=== PATIENT | male | born 1955 | race Caucasian/White ===

== ENCOUNTER 2018-07-27 12:42 | Inpatient (IN) | payer OTHER ==
--- NOTE | 2018-07-27 12:50 | EDPHY ---
H & P Time Seen by Provider: 07/27/18 12:46 HPI/ROS: CHIEF COMPLAINT: Left-sided weakness, dizziness HISTORY OF PRESENT ILLNESS: 62-year-old male with hypertension presents as a stroke alert with left-sided weakness and dizziness. Onset left-sided weakness at 1115am. Noted that the left arm was weak and trouble walking because of left leg weakness. Associated with slurred speech and dizziness. He has a moderate room spinning sensation and difficulty walking because of vertigo. No prior history of CVA. Not on anticoagulants or aspirin. REVIEW OF SYSTEMS: complete 10 point ROS reviewed and is negative except for the noted elements in the HPI - Physical Exam Exam: General Appearance: Alert, talkative, speech is clear Eyes: Pupils equal and round, no conjunctival pallor, horizontal nystagmus ENT, Mouth: Mucous membranes moist Neck: Normal inspection Respiratory: Lungs are clear to auscultation Cardiovascular: Regular rate and rhythm Gastrointestinal: Abdomen is soft and nontender Neurological: Alert and oriented, left sided weakness Skin: Warm and dry Extremities: Normal inspection Psychiatric: Mood and affect normal Constitutional: Initial Vital Signs Temperature (C) 36.6 C 07/27/18 13:02 Heart Rate 86 07/27/18 13:02 Respiratory Rate 20 07/27/18 13:02 Blood Pressure 129/72 H 07/27/18 13:02 O2 Sat (%) 95 07/27/18 13:02 O2 Delivery Mode Room Air O2 (L/minute) 2 Allergies/Adverse Reactions: bee pollen Allergy (Verified 07/27/18 15:19) Home Medications: Medication Instructions Recorded Hydrochlorothiazide [HCTZ (*)] 25 mg PO DAILY 07/27/18 Lisinopril [Zestril 40 mg (*)] 40 mg PO DAILY 07/27/18 Multivitamins [Multivitamin (*)] 1 each PO DAILY 07/27/18 Medical Decision Making - Diagnostics EKG Interpretation: EKG interpreted by me reveals normal sinus rhythm, rate 81, inferior Q-waves, no ST or T segment changes. Interpretation: Borderline EKG Imaging Results: Imaging Impressions Head CT 07/27/18 12:47 Impression: 1. Old stroke of the right temporoparietal junction. 2. Encephalomalacia and white matter hypodensity adjacent to the area of old stroke. Subacute stroke adjacent to chronic stroke is not excluded. However, this appearance would not be consistent with symptoms are only 1 to 2 hours new. 3. No intracranial hemorrhage or mass. Findings and recommendations discussed with Dr. Haydee Corbett at 12:58 p.m. on July 27, 2018. Final report concurs with initial preliminary interpretation. Head CTA 07/27/18 12:47 Impression: 1. Evidence of acute thrombus in the distal right vertebral artery, which affecting the posteroinferior cerebellar artery, which is not visualized. 2. Truncation of the M2 segment of the right middle cerebral artery, with a more chronic appearance and encephalomalacia in the right temporal parietal region as sequela from an old remote infarct. 3. Approximately 50% stenosis in both intracranial portions of the intracranial arteries, cavernous portions, from atherosclerotic calcified plaque and wall. CT Angiogram Neck With Contrast Enhancement and Multiplanar Reconstructions History: Left weak, vertigo. Technique: 1.25-mm axial multidetector helical CT imaging was performed through the neck while 75 mL Isovue-370 were injected intravenously without complication. The images were then transferred to an independent workstation where multiplanar and three-dimensional reconstructions were performed by the interpreting physician and reviewed at multiple windows. Dose reduction techniques were utilized. CTA Findings: Calcified atherosclerotic plaque is seen at both carotid bulbs extending to both proximal internal carotid arteries. This is more predominant on the left with approximately 50% stenosis. Both internal carotid arteries are widely patent in the neck, with tortuosity on the right. Left vertebral artery is widely patent without significant stenosis to the basilar artery. Right vertebral artery is smaller than the left. There is a slight halo around the distal right vertebral artery beginning at the level of C1-C2, extending to the base of the skull, where it is then nonvisualized with thrombus to the level of the basilar artery. CT Neck Findings: Multilevel degenerative change is seen in the cervical spine. There is disk height narrowing and osteophytosis, most pronounced at C5- C6 and C6-C7. There is more predominant stenosis on the right at C6-C7, from uncovertebral joint hypertrophy and spurring. Otherwise the narrowing is mild to moderate at multiple levels. Nonspecific air is seen in the left supraclavicular region, which could be from recent instrumentation or line placement. No suspicious lymph nodes. Lung apices are clear. Impression: 1. Evidence of thrombus in the distal right vertebral artery to the level of the basilar artery. This begins at the base of the skull to the basilar artery. There is also a possible halo with circumferential thrombus or less likely dissection at the level of C1-C2. 2. Mild atherosclerotic calcified plaque at both carotid bulbs extending to both proximal internal carotid arteries, more predominant on the left than the right, with near 50% stenosis on the left. Results called and discussed with Dr. Haydee Corbett on July 27, 2018 at 1410 hours. Measurement of carotid stenosis is based on the residual internal carotid diameter with [place] Symptomatic Carotid Endarterectomy Trial (NASCET) based stenosis levels. Neck CTA 07/27/18 12:47 Impression: 1. Evidence of acute thrombus in the distal right vertebral artery, which affecting the posteroinferior cerebellar artery, which is not visualized. 2. Truncation of the M2 segment of the right middle cerebral artery, with a more chronic appearance and encephalomalacia in the right temporal parietal region as sequela from an old remote infarct. 3. Approximately 50% stenosis in both intracranial portions of the intracranial arteries, cavernous portions, from atherosclerotic calcified plaque and wall. CT Angiogram Neck With Contrast Enhancement and Multiplanar Reconstructions History: Left weak, vertigo. Technique: 1.25-mm axial multidetector helical CT imaging was performed through the neck while 75 mL Isovue-370 were injected intravenously without complication. The images were then transferred to an independent workstation where multiplanar and three-dimensional reconstructions were performed by the interpreting physician and reviewed at multiple windows. Dose reduction techniques were utilized. CTA Findings: Calcified atherosclerotic plaque is seen at both carotid bulbs extending to both proximal internal carotid arteries. This is more predominant on the left with approximately 50% stenosis. Both internal carotid arteries are widely patent in the neck, with tortuosity on the right. Left vertebral artery is widely patent without significant stenosis to the basilar artery. Right vertebral artery is smaller than the left. There is a slight halo around the distal right vertebral artery beginning at the level of C1-C2, extending to the base of the skull, where it is then nonvisualized with thrombus to the level of the basilar artery. CT Neck Findings: Multilevel degenerative change is seen in the cervical spine. There is disk height narrowing and osteophytosis, most pronounced at C5- C6 and C6-C7. There is more predominant stenosis on the right at C6-C7, from uncovertebral joint hypertrophy and spurring. Otherwise the narrowing is mild to moderate at multiple levels. Nonspecific air is seen in the left supraclavicular region, which could be from recent instrumentation or line placement. No suspicious lymph nodes. Lung apices are clear. Impression: 1. Evidence of thrombus in the distal right vertebral artery to the level of the basilar artery. This begins at the base of the skull to the basilar artery. There is also a possible halo with circumferential thrombus or less likely dissection at the level of C1-C2. 2. Mild atherosclerotic calcified plaque at both carotid bulbs extending to both proximal internal carotid arteries, more predominant on the left than the right, with near 50% stenosis on the left. Results called and discussed with Dr. Haydee Corbett on July 27, 2018 at 1410 hours. Measurement of carotid stenosis is based on the residual internal carotid diameter with [place] Symptomatic Carotid Endarterectomy Trial (NASCET) based stenosis levels. Imaging: Discussed imaging studies w/ scallop binder Radiologist ED Course/Re-evaluation: This patient presents as a stroke alert with left-sided weakness and vertigo. I met this patient in the hallway. He went directly to CT, and then was interviewed by Dr. Gilmore of telemedicine. CT scan of the brain read by Dr. Dulce Maria Armando reveals an old infarct in the right frontoparietal area. 1310: d/w Dr. Gilmore, pt not a TPA candidate at this point, denies weakness on her evaluation. Requests CT/CTA of the brain and neck. 1430: CTA results discussed with Dr. Gilmore. Reveals a distal right vertebral clot. Dr. Gilmore requests TPA if pt unable to ambulate. Will attempt to ambulate the patient. If he is unable to ambulate, will proceed with tPA. Otherwise Dr. Gilmore does not feel that tPA is indicated. Repeat neuro exam: NIH stroke score of 4 (left arm/leg drift, limb ataxia LLE, moderate sensory loss LLE). Nystagmus present, not as pronounced as on initial exam. 1435: pt unable to ambulate. He tried to take one step and would have fallen if staff not there to support him d/t LLE weakness/numbness. I feel that he is an appropriate candidate for tPA. He has no contraindications. Risks and benefits of tPA discussed with the patient and his family. They clearly understand the the risks associated with tPA and wish to proceed. TPA ordered per protocol. The hospitalist service was consulted for admission and neurology was consulted. Dr. Eason will see the patient in the ICU. I spent a total of 45 minutes of critical care time in obtaining history, performing a physical exam, bedside monitoring of interventions, collecting and interpreting tests and discussion with consultants but not including time spent performing procedures. Organ at risk: Brain Differential Diagnosis: Altered mental status including but not limited to hypoglycemia, infectious process, electrolyte abnormality, head injury, CVA, and intoxicants. - Data Points Laboratory Results: Laboratory Results 07/27/18 13:50 07/27/18 13:12 07/27/18 07/27/18 07/27/18 13:50 13:29 13:13 WBC 12.51 10^3/uL H 10^3/uL (3.80-9.50) RBC 4.81 10^6/uL 10^6/uL (4.40-6.38) Hgb 13.9 g/dL g/dL (13.7-17.5) POC Hgb 15.3 gm/dL gm/dL (13.7-17.5) Hct 42.2 % % (40.0-51.0) POC Hct 45 % % (40-51) MCV 87.7 fL fL (81.5-99.8) MCH 28.9 pg pg (27.9-34.1) MCHC 32.9 g/dL g/dL (32.4-36.7) RDW 13.9 % % (11.5-15.2) Plt Count 276 10^3/uL 10^3/uL (150-400) MPV 10.1 fL fL (8.7-11.7) Neut % (Auto) 80.0 % H % (39.3-74.2) Lymph % (Auto) 13.0 % L % (15.0-45.0) [place] % (Auto) 6.2 % % (4.5-13.0) Eos % (Auto) 0.2 % L % (0.6-7.6) Baso % (Auto) 0.2 % L % (0.3-1.7) Nucleat RBC Rel Count 0.0 % % (0.0-0.2) Absolute Neuts (auto) 9.99 10^3/uL H 10^3/uL (1.70-6.50) Absolute Lymphs (auto) 1.63 10^3/uL 10^3/uL (1.00-3.00) Absolute Monos (auto) 0.78 10^3/uL 10^3/uL (0.30-0.80) Absolute Eos (auto) 0.03 10^3/uL 10^3/uL (0.03-0.40) Absolute Basos (auto) 0.03 10^3/uL 10^3/uL (0.02-0.10) Absolute Nucleated RBC 0.00 10^3/uL 10^3/uL (0-0.01) Immature Gran % 0.4 % % (0.0-1.1) Immature Gran # 0.05 10^3/uL 10^3/uL (0.00-0.10) POC Sodium 143 mEq/L mEq/L (135-145) Sodium POC Potassium 3.8 mEq/L mEq/L (3.3-5.0) Potassium POC Chloride 108 mEq/L mEq/L (97-110) Chloride Carbon Dioxide Anion Gap POC BUN 27 mg/dL H mg/dL (7-23) BUN Creatinine POC Creatinine 1.1 mg/dL mg/dL (0.7-1.3) Estimated GFR Glucose POC Glucose 147 mg/dL H mg/dL (70-100) Calcium POC Troponin I 0.01 ng/mL ng/mL (0.00-0.08) 07/27/18 13:12 WBC RBC Hgb POC Hgb Hct POC Hct MCV MCH MCHC RDW Plt Count MPV Neut % (Auto) Lymph % (Auto) [place] % (Auto) Eos % (Auto) Baso % (Auto) Nucleat RBC Rel Count Absolute Neuts (auto) Absolute Lymphs (auto) Absolute Monos (auto) Absolute Eos (auto) Absolute Basos (auto) Absolute Nucleated RBC Immature Gran % Immature Gran # POC Sodium Sodium 141 mEq/L mEq/L (135-145) POC Potassium Potassium 4.5 mEq/L mEq/L (3.5-5.2) POC Chloride Chloride 108 mEq/L mEq/L (97-110) Carbon Dioxide 21 mEq/l L mEq/l (22-31) Anion Gap 12 mEq/L mEq/L (6-14) POC BUN BUN 27 mg/dL H mg/dL (7-23) Creatinine 1.0 mg/dL mg/dL (0.7-1.3) POC Creatinine Estimated GFR > 60 Glucose 140 mg/dL H mg/dL (70-100) POC Glucose Calcium 9.8 mg/dL mg/dL (8.5-10.4) POC Troponin I Medications Given: Discontinued Medications Alteplase, Recombinant (Activase) 8.9811 mg 0.09 mg/kg (8.9811 mg) IV ONCE ONE PRN Reason: Protocol Stop: 07/27/18 14:50 Last Admin: 07/27/18 15:00 Dose: 8.9811 mg Alteplase, Recombinant (Activase) 80.8299 mg 0.81 mg/kg (80.8299 mg) IV ONCE ONE PRN Reason: Protocol Stop: 07/27/18 14:50 Last Admin: 07/27/18 15:00 Dose: 80.8299 mg Aspirin (Aspirin) 325 mg PO EDNOW ONE Stop: 07/27/18 13:17 Last Admin: 07/27/18 13:18 Dose: 325 mg Point of Care Test Results: Chemistry 07/27/18 07/27/18 13:29 13:13 POC Sodium 143 mEq/L mEq/L (135-145) POC Potassium 3.8 mEq/L mEq/L (3.3-5.0) POC Chloride 108 mEq/L mEq/L (97-110) POC BUN 27 mg/dL H mg/dL (7-23) POC Creatinine 1.1 mg/dL mg/dL (0.7-1.3) POC Glucose 147 mg/dL H mg/dL (70-100) POC Troponin I 0.01 ng/mL ng/mL (0.00-0.08) ISTAT H&H 07/27/18 13:13 POC Hgb 15.3 gm/dL gm/dL (13.7-17.5) POC Hct 45 % % (40-51) Departure - Departure Disposition: [facility] Acute Clinical Impression: Acute ischemic stroke Condition: Critical
[2018-07-27] MEDS ORDERED: IOPAMIDOL (ISOVUE 370) 75 ML BTL IV ONE (13:04)
[2018-07-27] MEDS ORDERED: ASPIRIN 325 MG TAB PO ONE (13:16)
--- NOTE | 2018-07-27 13:57 | CPEKG ---
Test Reason : OPEN Blood Pressure : / mmHG Vent. Rate : 081 BPM Atrial Rate : 081 BPM P-R Int : 195 ms QRS Dur : 109 ms QT Int : 406 ms P-R-T Axes : 055 062 022 degrees QTc Int : 472 ms Sinus rhythm Abnormal inferior Q waves Confirmed by Haydee Corbett ([id number]) on 07/27/2018 1:57:05 PM Referred By: Confirmed By:Haydee Corbett
[2018-07-27 14:01] LABS: PLATELET COUNT 276 10^3/uL (150-400)
[2018-07-27] MEDS ORDERED: NS 50 ML IV ONE (14:49)
[2018-07-27] MEDS ORDERED: ALTEPLASE 100 MG/100 ML VIAL IV ONE (14:49)
[2018-07-27] MEDS ORDERED: ALTEPLASE 1 MG/ML SYR IV ONE (14:49)
[2018-07-27] MEDS ORDERED: LABETALOL HCL 5 MG/ML 20 ML MDV IVP PRN (15:14)
--- NOTE | 2018-07-27 15:27 | PDGENHP ---
History and Physical - Chief Complaint Dizziness and weakness - History of Present Illness Patient is a 62-year-old male with past medical history of hypertension who presented with acute onset of dizziness, and left-sided numbness and weakness. He says that he was in the process of installing a new furnace and he started having hot flashes and then started feeling dizzy. His symptoms worsened and he also started to notice that his left hand felt numb and tingly and his left foot felt numb and clumsy. He could not differentiate between whether not he felt dizzy like the room was spinning or if he felt lightheaded. He did not have any nausea vomiting or chest pain. He did not notice any racing heart. He was well up until this incident. He says that lying down on his back seems to make the symptoms better but getting up and trying to move around makes symptoms much worse. In the ER neurology was consulted who initially did not want tPA. CTA confirmed posterior stroke and Neurology was reconsulted who then decided to administer tPA. History Information - Allergies/Home Medication List Allergies/Adverse Reactions: bee pollen Allergy (Verified 07/27/18 15:19) Home Medications: Hydrochlorothiazide [HCTZ (*)] 25 mg PO DAILY 07/27/18 [Last Taken 07/27/18] Lisinopril [Zestril 40 mg (*)] 40 mg PO DAILY 07/27/18 [Last Taken 07/27/18] Multivitamins [Multivitamin (*)] 1 each PO DAILY 07/27/18 [Last Taken 07/27/18] I have personally reviewed and updated: family history, medical history, social history, surgical history - Past Medical History hypertension - Surgical History Additional surgical history: Finger surgery for a severed tendon - Family History Positive for: diabetes type II, hypertension - Social History Smoking Status: Current every day smoker Tobacco Use: Cigarettes Alcohol Use: Occasionally Drug Use: None Review of Systems Review of Systems: ROS: 10pt was reviewed & negative except for what was stated in HPI & below Physical Exam Physical Exam: Temp Pulse Resp BP Pulse Ox 37.6 C 92 18 140/79 H 91 L 07/27/18 14:20 07/27/18 14:20 07/27/18 14:20 07/27/18 14:20 07/27/18 14:20 Constitutional: no apparent distress, appears nourished, not in pain Eyes: PERRL, anicteric sclera, EOMI Ears, Nose, Mouth, Throat: moist mucous membranes, hearing normal, ears appear normal, no oral mucosal ulcers Cardiovascular: regular rate and rhythym, no murmur, rub, or gallop, No edema Peripheral Pulses: 2+: dorsalis-pedis (R), dorsalis-pedis (L) Respiratory: no respiratory distress, no rales or rhonchi, clear to auscultation Gastrointestinal: normoactive bowel sounds, soft, non-tender abdomen, no palpable masses Genitourinary: no bladder fullness, no bladder tenderness Skin: warm, normal color, no rashes or abrasions, no fluctuance, no induration, No mottled Musculoskeletal: full muscle strength, no muscle tenderness, normal joint ROM, no joint effusions Neurologic: AAOx3, weakness, CN II-XII Intact, other (Mild left-sided weakness in his hands and he describes decreased sensation in his left arm and hand) Psychiatric: interacting appropriately, not anxious, not encephalopathic, thought process linear Lymph, Heme, Immunologic: no cervical LAD, no supraclavicular LAD Lab Data & Imaging Review 07/27/18 13:50 07/27/18 13:12 WBC 12.51 10^3/uL (3.80-9.50) H 07/27/18 13:50 RBC 4.81 10^6/uL (4.40-6.38) 07/27/18 13:50 Hgb 13.9 g/dL (13.7-17.5) 07/27/18 13:50 POC Hgb 15.3 gm/dL (13.7-17.5) 07/27/18 13:13 Hct 42.2 % (40.0-51.0) 07/27/18 13:50 POC Hct 45 % (40-51) 07/27/18 13:13 MCV 87.7 fL (81.5-99.8) 07/27/18 13:50 MCH 28.9 pg (27.9-34.1) 07/27/18 13:50 MCHC 32.9 g/dL (32.4-36.7) 07/27/18 13:50 RDW 13.9 % (11.5-15.2) 07/27/18 13:50 Plt Count 276 10^3/uL (150-400) 07/27/18 13:50 MPV 10.1 fL (8.7-11.7) 07/27/18 13:50 Neut % (Auto) 80.0 % (39.3-74.2) H 07/27/18 13:50 Lymph % (Auto) 13.0 % (15.0-45.0) L 07/27/18 13:50 [place] % (Auto) 6.2 % (4.5-13.0) 07/27/18 13:50 Eos % (Auto) 0.2 % (0.6-7.6) L 07/27/18 13:50 Baso % (Auto) 0.2 % (0.3-1.7) L 07/27/18 13:50 Nucleat RBC Rel Count 0.0 % (0.0-0.2) 07/27/18 13:50 Absolute Neuts (auto) 9.99 10^3/uL (1.70-6.50) H 07/27/18 13:50 Absolute Lymphs (auto) 1.63 10^3/uL (1.00-3.00) 07/27/18 13:50 Absolute Monos (auto) 0.78 10^3/uL (0.30-0.80) 07/27/18 13:50 Absolute Eos (auto) 0.03 10^3/uL (0.03-0.40) 07/27/18 13:50 Absolute Basos (auto) 0.03 10^3/uL (0.02-0.10) 07/27/18 13:50 Absolute Nucleated RBC 0.00 10^3/uL (0-0.01) 07/27/18 13:50 Immature Gran % 0.4 % (0.0-1.1) 07/27/18 13:50 Immature Gran # 0.05 10^3/uL (0.00-0.10) 07/27/18 13:50 POC Sodium 143 mEq/L (135-145) 07/27/18 13:13 Sodium 141 mEq/L (135-145) 07/27/18 13:12 POC Potassium 3.8 mEq/L (3.3-5.0) 07/27/18 13:13 Potassium 4.5 mEq/L (3.5-5.2) 07/27/18 13:12 POC Chloride 108 mEq/L (97-110) 07/27/18 13:13 Chloride 108 mEq/L (97-110) 07/27/18 13:12 Carbon Dioxide 21 mEq/l (22-31) L 07/27/18 13:12 Anion Gap 12 mEq/L (6-14) 07/27/18 13:12 POC BUN 27 mg/dL (7-23) H 07/27/18 13:13 BUN 27 mg/dL (7-23) H 07/27/18 13:12 Creatinine 1.0 mg/dL (0.7-1.3) 07/27/18 13:12 POC Creatinine 1.1 mg/dL (0.7-1.3) 07/27/18 13:13 Estimated GFR > 60 07/27/18 13:12 Glucose 140 mg/dL (70-100) H 07/27/18 13:12 POC Glucose 147 mg/dL (70-100) H 07/27/18 13:13 Calcium 9.8 mg/dL (8.5-10.4) 07/27/18 13:12 POC Troponin I 0.01 ng/mL (0.00-0.08) 07/27/18 13:29 Visualized and Interpreted imaging results: Yes Interpretation: Posterior infarct vertebral artery Visualized and Interpreted EKG results: Yes Assessment & Plan Assessment: Acute ischemic stroke (Acute)- I discussed the case with the emergency room physician and reviewed the CTA of his head. I find that the patient has had an acute CVA as posterior circulation which is consistent with the symptoms. Neurology has been consulted who recommended administration of tPA. -continue tPA -monitor in ICU -seizure precautions -neuro checks -echo in the morning -neurology consultation -permissive hypertension with labetalol as needed -lipid panel and hemoglobin A1c in the morning Hypertension- patient takes hydrochlorothiazide and lisinopril at home. Current blood pressure 147/99. Would allow some element of permissive hypertension in the setting of an acute ischemic stroke. -p.r.n. Labetalol Hyperglycemia- patient with no known history of diabetes but his father did have type 2 diabetes. Glucose elevated to about 150 in the ER -hemoglobin A1c pending Prophylaxis- SCDs no heparin patient is on tPA Fluids- saline Electrolytes- within normal limits Nutrition-NPO until he passes a swallow study Cor- full code Disposition- ICU for acute ischemic stroke on tPA I spent over 60 minutes of critical care time on the management of this patietn with over half spent on diret patient care.
[2018-07-27] MEDS ORDERED: methylPREDNISolone SOD SUCC 125 MG/2 ML VIAL IVP ONE (15:54)
[2018-07-27] MEDS ORDERED: DILTIAZEM 125 MG in D5W 125 ML IV ONE (16:32)
--- NOTE | 2018-07-27 16:32 | CPEKG ---
Test Reason : OPEN Blood Pressure : / mmHG Vent. Rate : 105 BPM Atrial Rate : 136 BPM P-R Int : 141 ms QRS Dur : 110 ms QT Int : 368 ms P-R-T Axes : 000 047 -26 degrees QTc Int : 487 ms Atrial fibrillation Abnormal R-wave progression, early transition Probable inferior infarct, age indeterminate Confirmed by Qasim Powell ([id number]) on 07/27/2018 4:31:35 PM Referred By: Confirmed By:Qasim Powell
[2018-07-27] MEDS ORDERED: DILTIAZEM HCL/D5W 125 ML IV ONE (17:00)
[2018-07-27] MEDS ORDERED: NS 1,000 ML IV SCH (18:30)
[2018-07-27] MEDS ORDERED: DILTIAZEM 125 MG in D5W 125 ML IV SCH (18:30)
[2018-07-27] MEDS: FAMOTIDINE 20 MG/NACL 50 ML IV SCH (20:59)
[2018-07-28 06:00] LABS: PLATELET COUNT 284 10^3/uL (150-400)
[2018-07-28] MEDS: FAMOTIDINE 20 MG/NACL 50 ML IV SCH (09:36)
[2018-07-28] MEDS: LISINOPRIL 40 MG TAB PO SCH (09:39)
[2018-07-28] MEDS: HYDROCHLOROTHIAZIDE 25 MG TAB PO SCH (09:39)
[2018-07-28] MEDS: FAMOTIDINE 20 MG TAB PO SCH ×2 (09:39→21:51)
[2018-07-28] MEDS: DILTIAZEM 30 MG TAB PO SCH ×4 (09:43→21:52)
--- NOTE | 2018-07-28 11:26 | GCON ---
NEUROLOGIC CONSULTATION REFERRING PHYSICIAN: Gm Lee MD HISTORY: The patient is a 62-year-old gentleman whom I am asked to see in neurologic consultation re garding acute stroke. 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 The onset was at 11:15 AM. He had some trouble walking because of a little weakness in the left leg and arm. His spe ech was a little slurred, and he did feel somewhat lightheaded. He came to the emergency room for [place] and Teleneurology Service assessed him with Dr. Corbett in the emergency department, and ultimately, he received tPA. Symptoms had fluctuated a little bit, and also, about 45 minutes into t he infusion, he seemed to have acute changes leading to a repeat head CT that was negative for bleed, but he was also having possible allergic reaction. Since coming to the ICU, he feels he has resolve d back to his baseline more or less. Interestingly, he describes many, many years of episodes where he will get facial periorbital swelling. He said it has never been clear why this happens, but it us ually resolves spontaneously after 24 hours. When he was getting his infusion, he felt particularly lightheaded and sweaty, and it is unclear whether it was definitely a reaction to the tPA or not, but it was stopped. He also received Benadryl. 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 There was also evidence of a more suspicious acute right vertebral artery distal occlusion. He has been found to have atrial fibrillation with a rapid ventricular rate, but it is now being controlled with medication. He is not aware of ever hav ing a prior stroke or atrial fibrillation. His chronic medical problems have been smoking and hypert ension. He has been treated for many years for hypertension. He has been told he does not have diab etes that he is aware of. He has never been known to have elevated cholesterol. No recent fever, chills, nausea, vomiting or diarrhea. He is not describing chest pain, palpitations or shortness of breath. FAMILY HISTORY: Noncontributory. SOCIAL HISTORY: As outlined above. Occasional alcohol. Over 20 years of smoking and started when h e was about 18. He used to smoke a pack a day. Now, he probably smokes 1/2 pack a day but says he w ants to stop. MEDICATIONS: His medication at home is lisinopril/hydrochlorothiazide and multivitamin. ALLERGIES: Bee pollen. REVIEW OF SYSTEMS: As outlined above. Otherwise, unremarkable. PHYSICAL EXAMINATION: VITAL SIGNS: Blood pressure is 127/96, pulse has been somewhat irregular jaylene use of atrial fibrillation but currently around 90, respirations 24. Temperature 36.9. GENERAL: He is overweight, lying in the bed in no acute distress. EYES: Clear. NECK: Supple with no bruits or masses. ENT: He has edematous upper lip more on the right than the left. This create s a sagging of the right upper corner of the mouth. NEUROLOGIC: NIH Stroke Scale is 1 based on his dysarthria, and I do not think the facial weakness is definitely present at this point. He is alert and oriented with no obvious cognitive impairment. Pupils are 2 mm and reactive. Extraocular moveme nts intact. Normal facial sensation. Strength does not seem to be asymmetric, but the caveat is the swelling in the right face makes it a little equivocal to say for sure. Palate elevates symmetrical ly. Tongue protrudes midline. Hearing is preserved. Motor exam reveals normal muscle bulk and tone with 5/5 strength and no abnormal movement. Sensation is preserved for temperature and light touch. No ataxia on [id number]. Full reflexes are 2 to 3+ and a little more brisk in the left knee th an the right but no Babinski sign. DATA REVIEWED: Diagnostic studies were reviewed and as outlined above. He also has elevated LDL cholesterol of 133, and an HDL is 36. Atrial fibrillation is continuing on the monitor. His followup head CT did not show any evidence of acute bleeding. IMPRESSION: Total unit time of 70 minutes. 1. Acute stroke or resolving stroke in the distribution of the right vertebral artery with associate d brainstem symptoms as outlined. Current NIH Stroke Scale of 1. He also has a history of stroke by imaging on the CT in the right temporoparietal region and evidence of an old occlusion in the M2 bra nch of middle cerebral artery. This combination of findings, especially now with recognition of atri al fibrillation, suggests he probably has had intermittent atrial fibrillation and not known it, and this would likely be a second embolic event. He has risk factors of smoking and hypertension as well . He should be treated with anticoagulation using one of the heparinoid products. I would recommend Eliquis or whatever Cardiology mostly recommends as well for atrial fibrillation and secondary strok e prophylaxis. This should be started this evening after the 24-hour window following the tPA. I sp rosalva to him about this, and he is comfortable with that. He should also be started on statin therapy in the next few days, and certainly prior to discharge, and he also agrees to that. He will have Phy sical, Occupational and Speech Therapy consults likely tomorrow morning, and then, disposition can be determined over the next 24-48 hours. 2. New onset of atrial fibrillation. Likely contributing source for these suspected embolic stroke phenomena as outlined above. Cardiology and Medicine to make decisions on management of the atrial f ibrillation. 3. Hypertension. 4. Smoking. The patient should cease smoking, and he intends to do so and can receive help if neede d. 5. The patient sounds as if he has a history of developing spontaneous angioedema type events around his mouth and is showing evidence of that now, although he might also have had a reaction to the tPA otherwise described, and that seems to be stable. He did not complete the full dosing, but it would not be appropriate to do additional tPA at this point. I will continue to follow the patient's course during hospitalization and be available for questions as they arise. Echocardiogram is pending and will specifically be looking for any evidence of PFO. Copy requested to: [place], [place] /[id number]/MODL
--- NOTE | 2018-07-28 12:42 | HOSPPROG ---
Hospitalist Progress Note Assessment/Plan: 62yo M with HTN, smoker presents with acute onset dizziness, extremity numbness found to have acute stroke and atrial fibrillation. 1. Acute ischemic CVA: Involving R vertebral artery thrombus. Symptoms grossly resolved. Given old cerebral infarct identified on brain imaging, suspect this is thromboembolic from atrial fibrillation. - Neurology following - TTE w/bubble ordered - Plan for therapeutic anticoagulation at least 24 hours after TPA (roughly 3pm). Plan to initiate this evening, will discuss specific medication with cardiology, likely factor Xa inhibitor - PT/OT/AUTO DEALER 2. Atrial fibrillation: Suspect this has been chronic, asymptomatic issue. - Consulting cardiology, discussed with Caryl Rangel - Continue PO diltiazem 30mg q8h - TTE to eval valves, chamber sizes - Anticoagulate as above 3. Sporadic facial swelling: Resolving. Concern for angioedema. Airway patent. - Discussed that lisinopril could be culprit. He does not want to stop at this moment, wants to discuss with PCP. 4. Hypertension: Permissive hypertension with ischemic CVA. Cont homd lisinopril , hctz 5. Tobacco use: Strongly advised complete cessation. VTE ppx: SCDs Code: full Diet: regular Dispo: Switch to inpatient Subjective: Doing well. Facial droop, arm numbness essentially resolved. No dizziness but on bed rest. No chest pain, palpitations. Per RN went into rapid Afib yesterday afternoon when getting TPA. Briefly on diltiazem gtt until this AM when transitioned to PO. Now appears in NSR on telemetry. Objective: Vital Signs Temp Pulse Resp BP Pulse Ox 36.8 C 85 23 H 125/82 H 96 07/28/18 12:00 07/28/18 12:00 07/28/18 12:00 07/28/18 12:00 07/28/18 12:00 Laboratory Results 07/28/18 05:45 07/28/18 05:45 07/27/18 07/28/18 07/29/18 05:59 05:59 05:59 Intake Total 3909 Output Total 700 250 Balance 1399 -250 - Physical Exam Constitutional: no apparent distress, appears nourished, not in pain, obese Eyes: PERRL, anicteric sclera, EOMI Ears, Nose, Mouth, Throat: moist mucous membranes, hearing normal, ears appear normal, no oral mucosal ulcers Cardiovascular: regular rate and rhythym, no murmur, rub, or gallop, No JVD, No edema Respiratory: no respiratory distress, no rales or rhonchi, clear to auscultation Gastrointestinal: normoactive bowel sounds, soft, non-tender abdomen, no palpable masses Genitourinary: no bladder fullness, no bladder tenderness, no renal bruits Skin: no rashes or abrasions, no fluctuance, no induration Musculoskeletal: full muscle strength, no muscle tenderness, normal joint ROM Neurologic: AAOx3, sensation intact bilaterally Psychiatric: interacting appropriately, not anxious, not encephalopathic, thought process linear ICD10 Worksheet Patient Problems: Problems Problem Status Onset Acute ischemic stroke Acute
--- NOTE | 2018-07-28 12:59 | ASMTCASEMG ---
Living Arrangements What is your living Answers: Alone arrangement? Who do you live with? Type Of Residence What kind of residence do Answers: House you live in? Discharge Plan Comments Coordination Status Comments Notes: Patient is a 62yo male who was admitted for acute ischemic stroke, hypertension, hyperglycemia. 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 D/C plan TBD. CM will follow. Date Signed: 07/28/2018 12:58 PM Electronically Signed By:Melyssa Oconnor LCSW
--- NOTE | 2018-07-28 13:46 | PDMN ---
Medical Necessity Medical necessity: Pt meets inpt criteria per MD order and [facility] M-83, Stroke: Ischemic, 2 days. 62 y/o presented w/acute onset dizziness and L sided numbness and weakness, admitted w/acute ischemic stroke, confirmed on CTA of head, and atrial fibrillation w/RVR. Neuro consult, tPA initiated, dilt gtt initiated, ECHO today, ICU care. Est LOS>2MN for ongoing eval/management of above.
--- NOTE | 2018-07-28 15:58 | PDCARCONS ---
Cardiology Consult Reason for Consult: Cardiology is asked to consult regarding CVA Chief Complaint: Left sided numbness and weakness in arms and legs yesterday . Requesting Physician: Hospitalist Ruddy Sherwood MD History of Present Illness: Mervin is a 62 y/o male who was in his usual state of health until suddenly yesterday 07/27/18 while working on a furnace around 11:00, he became weak and noticed left sided numbness in his arms and legs. He had difficulty walking and felt lightheaded. He called his partner that he was working with to come help him, and he had to lay down. His speech was slurred and EMT's were called. Once at the Emergency Room he was immediately evaluated by Dr Corbett and the Teleneurology Service. Head CT scan was done finding no hemorrhage and tPA was administered. He became symptomatic and the tPA was stopped about 3pm. It was determined he was having an allergic reaction and was given Benadryl. He then had another head CT that was negative. While in ER he had an episode of atrial fibrillation that was treated with Diltiazem and he converted. He remains on oral Diltiazem. He was then transferred to ICU where he has done well and progressed nicely. He has been evaluated by Calderon Eason MD, with Neurology. 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 He does not recall having a stroke , or having stroke-like symptoms in the past. He has Hypertension, and smokes cigarettes, which as of yesterday he has stopped. He has no other history of cardiac abnormalities. At time of visit he is talkative, and in good spirits with family at bedside. History Information - Allergies/Home Medication List Allergies/Adverse Reactions: bee pollen Allergy (Verified 07/27/18 15:19) Home Medications: Hydrochlorothiazide [HCTZ (*)] 25 mg PO DAILY 07/27/18 [Last Taken 07/27/18] Lisinopril [Zestril 40 mg (*)] 40 mg PO DAILY 07/27/18 [Last Taken 07/27/18] Multivitamins [Multivitamin (*)] 1 each PO DAILY 07/27/18 [Last Taken 07/27/18] I have personally reviewed and updated: family history, medical history, social history, surgical history Past Medical History: - Past Medical History hypertension - Social History Smoking Status: Current every day smoker Tobacco Use: Cigarettes Alcohol Use: Occasionally Drug Use: None CRISTINA Risk Evaluation age greater or equal to 65: no Physical Exam Physical Exam: Temp Pulse Resp BP Pulse Ox 36.8 C 79 19 139/91 H 93 07/28/18 12:00 07/28/18 15:00 07/28/18 15:00 07/28/18 15:00 07/28/18 15:00 O2 (L/minute) 2 Constitutional: no apparent distress, not in pain Eyes: PERRL Ears, Nose, Mouth, Throat: moist mucous membranes Cardiovascular: regular rate and rhythym, no murmur, rub, or gallop Peripheral Pulses: 2+: carotid (L), dorsalis-pedis (R), dorsalis-pedis (L) Respiratory: no respiratory distress, inspiratory crackles, rhonchi Gastrointestinal: normoactive bowel sounds, soft, non-tender abdomen Genitourinary: no bladder fullness Skin: warm, normal color Musculoskeletal: full muscle strength Neurologic: AAOx3, No weakness, No numbness Psychiatric: interacting appropriately, not anxious Lab and Imaging 07/28/18 05:45 07/28/18 05:45 WBC 11.71 10^3/uL (3.80-9.50) H 07/28/18 05:45 RBC 5.12 10^6/uL (4.40-6.38) 07/28/18 05:45 Hgb 15.0 g/dL (13.7-17.5) 07/28/18 05:45 POC Hgb 15.3 gm/dL (13.7-17.5) 07/27/18 13:13 Hct 44.7 % (40.0-51.0) 07/28/18 05:45 POC Hct 45 % (40-51) 07/27/18 13:13 MCV 87.3 fL (81.5-99.8) 07/28/18 05:45 MCH 29.3 pg (27.9-34.1) 07/28/18 05:45 MCHC 33.6 g/dL (32.4-36.7) 07/28/18 05:45 RDW 14.0 % (11.5-15.2) 07/28/18 05:45 Plt Count 284 10^3/uL (150-400) 07/28/18 05:45 MPV 10.1 fL (8.7-11.7) 07/28/18 05:45 Neut % (Auto) 66.0 % (39.3-74.2) 07/28/18 05:45 Lymph % (Auto) 23.8 % (15.0-45.0) 07/28/18 05:45 [place] % (Auto) 8.4 % (4.5-13.0) 07/28/18 05:45 Eos % (Auto) 1.1 % (0.6-7.6) 07/28/18 05:45 Baso % (Auto) 0.3 % (0.3-1.7) 07/28/18 05:45 Nucleat RBC Rel Count 0.0 % (0.0-0.2) 07/28/18 05:45 Absolute Neuts (auto) 7.72 10^3/uL (1.70-6.50) H 07/28/18 05:45 Absolute Lymphs (auto) 2.79 10^3/uL (1.00-3.00) 07/28/18 05:45 Absolute Monos (auto) 0.98 10^3/uL (0.30-0.80) H 07/28/18 05:45 Absolute Eos (auto) 0.13 10^3/uL (0.03-0.40) 07/28/18 05:45 Absolute Basos (auto) 0.04 10^3/uL (0.02-0.10) 07/28/18 05:45 Absolute Nucleated RBC 0.00 10^3/uL (0-0.01) 07/28/18 05:45 Immature Gran % 0.4 % (0.0-1.1) 07/28/18 05:45 Immature Gran # 0.05 10^3/uL (0.00-0.10) 07/28/18 05:45 POC Sodium 143 mEq/L (135-145) 07/27/18 13:13 Sodium 139 mEq/L (135-145) 07/28/18 05:45 POC Potassium 3.8 mEq/L (3.3-5.0) 07/27/18 13:13 Potassium 4.1 mEq/L (3.5-5.2) 07/28/18 05:45 POC Chloride 108 mEq/L (97-110) 07/27/18 13:13 Chloride 109 mEq/L (97-110) 07/28/18 05:45 Carbon Dioxide 22 mEq/l (22-31) 07/28/18 05:45 Anion Gap 8 mEq/L (6-14) 07/28/18 05:45 POC BUN 27 mg/dL (7-23) H 07/27/18 13:13 BUN 19 mg/dL (7-23) 07/28/18 05:45 Creatinine 1.0 mg/dL (0.7-1.3) 07/28/18 05:45 POC Creatinine 1.1 mg/dL (0.7-1.3) 07/27/18 13:13 Estimated GFR > 60 07/28/18 05:45 Glucose 108 mg/dL (70-100) H 07/28/18 05:45 POC Glucose 147 mg/dL (70-100) H 07/27/18 13:13 Hemoglobin A1c 5.9 % (4.0-6.0) 07/28/18 05:45 Estim Average Glucose 123 mg/dL (68-126) 07/28/18 05:45 Calcium 9.0 mg/dL (8.5-10.4) 07/28/18 05:45 Total Bilirubin 0.6 mg/dL (0.1-1.4) 07/28/18 05:45 AST 23 IU/L (17-59) 07/28/18 05:45 ALT 31 IU/L (21-72) 07/28/18 05:45 Alkaline Phosphatase 70 IU/L (38-126) 07/28/18 05:45 POC Troponin I 0.01 ng/mL (0.00-0.08) 07/27/18 13:29 Total Protein 6.8 g/dL (6.3-8.2) 07/28/18 05:45 Albumin 4.1 g/dL (3.5-5.0) 07/28/18 05:45 Triglycerides 179 mg/dL (40-150) H 07/28/18 05:45 Cholesterol 205 mg/dL (140-220) 07/28/18 05:45 Cholesterol Risk Factr 1.4 (0.2-1.0) H 07/28/18 05:45 LDL Cholesterol, Calc 133 mg/dL (80-100) H 07/28/18 05:45 LDL Risk Factor 1.2 (0.2-1.0) H 07/28/18 05:45 VLDL Cholesterol 36 mg/dL (8-25) H 07/28/18 05:45 Non-HDL Cholesterol 169 mg/dL (90-129) H 07/28/18 05:45 HDL Cholesterol 36 mg/dL (40-65) L 07/28/18 05:45 LDL/HDL Ratio 3.70 RATIO (1.00-3.64) H 07/28/18 05:45 Cholesterol/HDL Ratio 5.69 RATIO (1.00-4.97) H 07/28/18 05:45 Visualized and Interpreted EKG results: Yes A/P Assessment: IMPRESSION & PLAN: 1. Acute Stroke now resolving. He was treated with tPA for shortened period of time due to reaction to the infusion, treated with Benadryl. The tPA was stopped about 3:[address] indicated that he likely had a previous stroke of the right temporoparietal region, and old occlusion of in the M2 branch of middle cerebral artery. It has been 24 hours since stopping the tPA. He now will be started on Eliquis 5 mg BID for anticoagulation. On exam he had noted crackles. His IV fluids were stopped. He may need a low dose diuretic if his lungs do not clear. 2. ATRIAL FIBRILLATION was seen during his ER treatment. He was treated with Diltiazem and converted to RSR. He will continue on oral Diltiazem for antiarrhythmic management. He will take his first dose of Eliquis this evening. He will need to remain on long-term anticoagulation. 3. HYPERTENSION is well managed on HCTZ, and Lisinopril. BP 117/74 this afternoon. 4. TOBACCO ABUSE. He is committed to stopping. He understands the importance of no smoking. PLAN: 1. Start Eliquis 5 mg BID for anticoagulation starting this evening dose. He will need to remain on anticoagulation long-term. 2. Continue on Diltiazem Immediate Release 30 mg QID for management of atrial fibrillation. He currently remains in RSR. 3. Echocardiogram with Bubble study has been ordered to evaluate heart structure , valves, and for possible PFO. 4. HYPERTENSION management on HCTZ 25 mg QD, Lisinopril 40 mg QD. 5. He will need to start Statin medication. We did discuss this and is will to start. He would [facility] talk [facility]. His Lipid panel was done showing hyperlipidemia with total cholesterol 205, LDL 133, Non-HDL 169. Would recommend Atorvastatin 40 mg QD. 6. Smoking Cessation importance was discussed with him. He stated that he is done smoking. 7. Paroxysmal Atrial Fibrillation by EKG. He will continue on Diltiazem Immediate release 30 mg QID. Will get EKG this afternoon, and daily. 8. Plan to have him wear a 30 day monitor after discharge to evaluate for atrial fibrillation burden. We will continue to follow along closely during his course of hospitalization. Thank you for asking us to be part of this patients care.
--- NOTE | 2018-07-28 18:19 | GCON ---
CRITICAL CARE CONSULTATION DATE OF CONSULTATION: 07/28/2018 HISTORY OF PRESENT ILLNESS: This patient is a 62-year-old male whose only past medical history inclu juan hypertension, who was working in his fireplace and noted acute onset of dizziness which he said h as happened in the past, but he did not think much of it. He also developed left numbness in his arm , as well as his lower extremities, and weakness. Initially, he came to the emergency department wit h these complaints, had a head CT that did not show any obvious stroke and was evaluated by Neurology . They thought he did not qualify for tPA, but a CT angiogram said a likely posterior stroke; subseq uently, was treated with tPA. About 45 minutes into it, he developed significant flushing, so this w as discontinued. There was also a significant facial droop at that time and repeat head CT did not s how any evidence of bleeding. By morning, his symptoms were nearly 100% abated and he felt quite wel l. Other than a period of dizziness he noted in the past, which he thought was just due to standing up too quickly, he has not had any difficulty. Of note also, he was found to be in atrial fibrillati on with RVR and was given diltiazem and this helped control his rate and maintain a normal blood pres sure. He was unaware of any previous atrial fibrillation. REVIEW OF SYSTEMS: On review of systems, he does have snoring and frequent awakening at night, but n o known sleep apnea and he denied any excess daytime somnolence. Otherwise, review of systems as juan cribed in the HPI. PAST MEDICAL HISTORY: Includes hypertension only. PAST SURGICAL HISTORY: Includes finger surgery. SOCIAL HISTORY: He is an ongoing smoker. No alcohol or IV drug use. FAMILY HISTORY: Includes diabetes and hypertension. CURRENT MEDICATIONS: Include diltiazem, Pepcid, hydrochlorothiazide, labetalol p.r.n., lisinopril, a nd Eliquis started today. PHYSICAL EXAMINATION: VITAL SIGNS: At the time of my exam, his blood pressure is 136/99, heart rate of 114, respirations 14, oxygen saturation 93%. GENERAL: He was awake and alert, sitting on the si de of the bed, in no apparent distress. Alert, oriented x3, able to speak in full sentences without using accessory muscles for breathing. HEENT: Pupils equally round and reactive to light, nonicteri c and noninjected. Mucous membranes are moist without erythema or exudate. NECK: Supple without ad enopathy or jugular vein distention. LUNGS: Breath sounds were clear to auscultation bilaterally wi thout wheezes, rubs, or rales. HEART: Irregularly irregular, but no obvious murmurs. ABDOMEN: Sof t, nontender, nondistended without hepatosplenomegaly. EXTREMITIES: Show no clubbing, cyanosis, or edema. NEUROLOGIC: Nonfocal, including 5/5 strength in both upper extremities. Lower extremities n ot tested. Deep tendon reflexes were normal. SKIN: Warm and dry without evidence of rash. OBJECTIVE DATA: 1. Includes a white count of 11.7, hematocrit 44, platelets 284. Basic metabolic panel was unremark able. Liver tests were normal. 2. Echocardiogram was done, results are pending at this time. ASSESSMENT AND PLAN: 1. Stroke probably related to previously unrecognized atrial fibrillation. He seemed to be quite st able on diltiazem drip, we started him on oral diltiazem 30 mg four times daily, which he has tolerat ed reasonably well. Cardiology consult is certainly worth his while and follow up on his echocardiog didier at that time. PT and OT and swallow values pending at this time, as well, but he seems to be doi ng quite well and has recovered from the stroke. 2. Atrial fibrillation, as described above, could be related to underlying sleep apnea which he will eventually need to be worked up. Cardiology consult is pending and ongoing anticoagulation of cours e will likely be indicated. 3. Sleep apnea. I told him he should get an outpatient sleep study. [facility] He ca n follow up at that time as an outpatient. /[id number]/MODL
[2018-07-28] MEDS: APIXABAN 5 MG TAB PO SCH (21:51)
[2018-07-29] MEDS: DILTIAZEM 30 MG TAB PO SCH ×2 (05:43→12:41)
[2018-07-29] MEDS: FAMOTIDINE 20 MG TAB PO SCH (08:44)
[2018-07-29] MEDS: HYDROCHLOROTHIAZIDE 25 MG TAB PO SCH (08:44)
[2018-07-29] MEDS: APIXABAN 5 MG TAB PO SCH (08:44)
[2018-07-29] MEDS: LISINOPRIL 40 MG TAB PO SCH (08:45)
--- NOTE | 2018-07-29 09:51 | PDCARPN ---
Cardiology Progress Note Chief Complaint: No cardiovascular complaints today. Neurologic deficits have resolved Assessment/Plan: Assessment: Patient is a 62 y/o male with no prior history of CAD, HLP, or DM, but noted HTN (on [facility]), with acute left sided weakness noted yesterday. Stroke alert was activated, and after meeting criteria, tPA was given. Possible allergic reaction was noted, and therapy was stopped (45 minutes after therapy was started). Allergic signs/symptoms resolved, as well as the neurologic deficits. Of note, the CT angio of the brain with evidence of acute CVA as well as old CVA. While in house, the patient was noted to have an episode of atrial fibrillation. Cardizem therapy assisted with conversion back to normal sinus rhythm. [facility] by [facility] with ACEi and diuretic therapy in the past. The patient was an active smoker (prior to this admission). No cardiovascular complaints today. No chest pains or pressure. No PND or orthopnea. Brother was present with the patient in the room today. Plan: (1) Would continue therapy on Eliquis for newly noted CVA in the setting of atrial fibrillation (2) Continue therapy on Cardizem for both rhythm/rate control as well as HTN management assistance (3) Maintain therapy on ACEi and HCTZ, but if blood pressures (with the addition of the CCB) are noted to be too suppressed, would consider cessation of the HCTZ (4) Would add statin therapy to this patient with the noted atherosclerosis on CT of brain - an assumption that can be made is that the patient has some degree of systemic atherosclerosis (5) Consideration for outpatient MPI testing given aforementioned findings - this can be set up through the [facility] after follow up with PCP (6) Strong recommendations for complete smoking cessation (7) Outpatient OT/PT is recommended even in light of resolution of neurologic deficits (8) Regular and routine exercise (9) [id number] score is 5 for age (1), HTN (1), CVA (2), and Vascular (1) If the patient is unable to have cardiology follow up in a timely manner, would recommend follow up with [facility] after this admission Subjective: No cardiovascular complaints today. Reviewed/Discussed With: family Objective: Vital Signs (8 Hrs) Temp Pulse Resp BP Pulse Ox 07/29/18 07:33 36.6 C 75 17 134/85 H 95 07/29/18 05:43 77 111/73 07/29/18 03:58 36.6 C 77 16 111/73 95 Intake/Output (24 Hrs) 07/28/18 07/29/18 07/30/18 05:59 05:59 05:59 Intake Total 9 750 Output Total 700 250 Balance 1399 500 Intake: Oral (ml) 750 IV Infused (ml) 2098 Diltiazem 125 mg In D5w 139 125 ml @ Titrate IV CONT KARIN Rx#:[id number] Ns 1,000 ml @ 75 mls/hr 900 IV CONT KARIN Rx#: [id number] Output: Urine (ml) 700 250 Urinal 700 250 Other: Weight 102.3 kg Intake Quantity Yes Sufficient Number of Voids Toilet 1 Number of Stools Toilet 1 Result Diagrams: 07/28/18 05:45 07/28/18 05:45 EKG: normal sinus rhythm at 82 bpm Echocardiogram: LVEF was normal on echocardiography without milton valve pathology appreciated. Bubble contrast injection was somewhat "inconclusive" and would consider VAN ( in the outpatient setting) to better determine patient's risks given the CVA history - Physical Exam Constitutional: WDWN, healthy appearing, no apparent distress Eyes: PERRL, EOMI Ears, Nose, Mouth, Throat: moist mucous membranes Cardiovascular: regular rate and rhythm, no murmurs, no rubs, no gallops, pulses symmetric bilat, No jugular vein distention Peripheral Pulses: 2+: dorsalis-pedis (R), dorsalis-pedis (L) Respiratory: clear to auscultate bilat, no crackles, no wheezes Gastrointestinal: normoactive bowel sounds Skin: no rashes, no edema Musculoskeletal: no muscular tenderness Neurologic: AAOx3, CN II-XII grossly intact Psychiatric: cooperative, interactive, following commands ICD10 Worksheet Patient Problems: Problems Problem Status Onset Acute ischemic stroke Acute
--- NOTE | 2018-07-29 10:06 | NEUROPROG ---
Assessment: total unit time of 15 minutes. Stroke with NIHSS of 0 at discharge. New onset Afib. Old, asymptomatic stroke with suspect embolic source. Now on Eliquis. Follow up at [facility] with neurology. OK to discharge from my standpoint. Subjective: patient reports feeling 95% of baseline. No new complaints Objective: Vital Signs Temp Pulse Resp BP Pulse Ox 36.6 C 75 17 134/85 H 95 07/29/18 07:33 07/29/18 07:33 07/29/18 07:33 07/29/18 07:33 07/29/18 07:33 Laboratory Results 07/28/18 05:45 07/28/18 05:45 07/28/18 07/29/18 07/30/18 05:59 05:59 05:59 Intake Total 2099 750 Output Total 700 250 Balance 1399 500 Normal neuro exam now Allergies/Adverse Reactions: bee pollen Allergy (Verified 07/27/18 15:19)
[2018-07-29 12:24] VITALS: BP 142/95
--- NOTE | 2018-07-29 15:01 | ASMTLACE ---
LACE Length of stay for Answers: 2 days current admission Acuity / Level of Answers: Yes Care: Did the patient have an inpatient admission? Comorbidities - select Answers: Other Notes: HTN all that apply # of Emergency department Answers: 1-2 visits in the last 6 months Score: 7 Date Signed: 07/29/2018 03:01 PM Electronically Signed By:Adele Roque RN
--- NOTE | 2018-07-29 15:04 | ASMTDCNOTE ---
Case Management Discharge Discharge Order Complete? Answers: Yes Patient to Obtain Answers: via Family Medications Transportation Arranged Answers: Family/Friends Family Notified Answers: Yes Notes: in room Discharge Comments Notes: 07/29/2018 Case Management Note PT OT SLT cleared pt to return home with family support. Pt lives with son Kvng [phone]. Daughter Yenni to assist as well [phone]. Brother Rory is part of care team [phone]. Pt met with [facility] in [place]. New PCP is Dr. Daily. Pt to follow up with [facility] and [facility]. Case Management d/c poc: Home with follow up as directed. Date Signed: 07/29/2018 03:04 PM Electronically Signed By:Adele Roque RN
--- NOTE | 2018-07-29 15:04 | ASDISCHSUM ---
Discharge Information Plan Status:Home with No Needs Medically Cleared to Leave:07/28/2018 Discharge Date:07/29/2018 02:57 PM CM D/C Disposition:Home, Routine, Self-Care ADT D/C Disposition:Home, Routine, Self-Care Projected Discharge Date:07/29/2018 02:57 PM Transportation at D/C:Family Discharge Delay Reason: Follow-Up Date:07/29/2018 02:57 PM Discharge Slot: Final Diagnosis: Placement Information Patient Contact Information Contact Name:FAINA Relationship: Address: Home Phone: Work Phone: City: Alternate Phone: State/[place] Code: Email: Financial Information Financial Class:HMO and PPO Plans Primary Plan Desc:Michael Primary Plan Number:[id number] Secondary Plan Desc: Secondary Plan Number: Assessment Information LACE LACE Length of stay for Answers: 2 days current admission Acuity / Level of Answers: Yes Care: Did the patient have an inpatient admission? Comorbidities - select Answers: Other Notes: HTN all that apply # of Emergency department Answers: 1-2 visits in the last 6 months Score: 7 Date Signed: 07/29/2018 03:01 PM Electronically Signed By:Adele Roque RN [facility] Initial CM Assessment Living Arrangements What is your living Answers: Alone arrangement? Who do you live with? Type Of Residence What kind of residence do Answers: House you live in? Discharge Plan Comments Coordination Status Comments Notes: Patient is a 62yo male who was admitted for acute ischemic stroke, hypertension, hyperglycemia. 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 OT/PT/DELIVERY ROOM CLERK/Inpatient Rehab evals have been ordered for the patient. D/C plan TBD. CM will follow. Date Signed: 07/28/2018 12:58 PM Electronically Signed By:Melyssa Oconnor LCSW Case Management Discharge Plan Note Case Management Discharge Discharge Order Complete? Answers: Yes Patient to Obtain Answers: via Family Medications Transportation Arranged Answers: Family/Friends Family Notified Answers: Yes Notes: in room Discharge Comments Notes: 07/29/2018 Case Management Note PT OT SLT cleared pt to return home with family support. Pt lives with son Kvng [phone]. Daughter Yenni to assist as well [phone]. Brothezio Valadez is part of care team [phone]. Pt met with [facility] in [place]. New PCP is Dr. Daily. Pt to follow up with [facility] Neuro and [facility]. Case Management d/c poc: Home with follow up as directed. Date Signed: 07/29/2018 03:04 PM Electronically Signed By:Adele Roque RN Intervention Information
--- NOTE | 2018-07-29 15:46 | PDDCSUM ---
Discharge Summary Discharge Summary: Date of Admission: 07/27/2018 Date of Discharge: 07/29/2018 Consultants: neurology, cardiology, residential mortgage underwriter Studies: head CT, CTA head/neck, TTE (pending) Discharge Diagnoses: 1. Acute ischemic CVA 2. Atrial fibrillation with RVR, new diagnosis 3. Facial swelling consistent with angioedema 4. Hypertension 5. Tobacco use 6. Chronic CVA on imaging Brief Hospital Course: 62yo M with HTN, tobacco use presented with acute onset dizziness, extremity numbness, and word finding difficulty. Stroke alert was called. CTA of his head/neck showed a distal occlusion of right vertebral artery. Received systemic TPA at recommendation of teleneurology. He developed some facial swelling about 45 minutes after TPA and also went into atrial fibrillation with RVR. A repeat head CT did not show any evidence of intracranial bleed. He was started on a nicardipine gtt and converted back to NSR. He was then transitioned to an oral calcium channel monica. Both neurology and cardiology saw the patient in consultation. His neurologic deficits completely resolved. Interestingly, his head imaging showed an old right parietal stroke. We suspect that his strokes are thromboembolic from atrial fibrillation, which is a new diagnosis for him. He was started on eliquis 24 hours after receiving TPA. He was also started on a statin. He was cleared by PT/OT/COST ANALYST for home. Of note, he reports years of developing sporadic face, lizandro-orbital, and lip swelling. This sounds like angioedema. He is on an MICHELE inhibitor and I recommended he switch this to losartan. He declined doing this now and would like to follow up with [facility]CP [facility]. Medications: Please refer to EMR for complete list. I wrote him prescriptions for eliquis 5mg BID, atorvastatin 40mg QD, diltiazem ER 120mg QD. Follow Up Plan: 1. Establish with plastic jig and fixture builder at the [facility]. If he is unable to do this, I gave him the number for [facility] 2. Follow up with neurology 3. Recommend stopping lisinopril and switching to ARB 4. Smoking cessation Physical Exam: Vitals reviewed, normal HR and BP. Alert and oriented without focal neurologic deficits, RRR without m/r/g, lungs clear, abdomen soft, no leg edema, no rashes, no facial edema.
--- NOTE | 2018-07-31 05:08 | CPEKG ---
Test Reason : OPEN Blood Pressure : / mmHG Vent. Rate : 082 BPM Atrial Rate : 082 BPM P-R Int : 166 ms QRS Dur : 111 ms QT Int : 380 ms P-R-T Axes : 035 020 -07 degrees QTc Int : 444 ms Sinus rhythm Inferior infarct, age indeterminate Confirmed by Teodoro Mcdermott ([id number]) on 07/31/2018 5:07:38 AM Referred By: Confirmed By:Teodoro Mcdermott
== END 2018-07-29 14:57 | disposition home or self-care (01) | DRG 63 ==
LOC: EDUNIT# → F2N 17:14 → F3N 07-28 18:17
PROVIDERS: ADMIT Internal Medicine; ATTEND Internal Medicine
DX: I63.011 Cerebral infarction due to thrombosis of right vertebral artery (principal); I10 Essential (primary) hypertension; I48.91 Unspecified atrial fibrillation; R73.9 Hyperglycemia, unspecified; T78.3XXA Angioneurotic edema, initial encounter; T45.615A Adverse effect of thrombolytic drugs, initial encounter; R29.701 NIHSS score 1; G47.30 Sleep apnea, unspecified; F17.210 Nicotine dependence, cigarettes, uncomplicated
CPT/HCPCS: 82435-PO; 82565-PO; 82947-PO; 84132-PO; 84295-PO; 84484-ER; 84520-PO; 85014-ER; 92610-GN; 96365; 97161-GP; 97165-GO; J1200; J2930; J2997; Q9967